=== PATIENT | male | born 1970 | race Caucasian/White ===

== ENCOUNTER 2016-12-01 15:55 | Emergency (ER) | payer BC ==
[~2016-12-01] VITALS: Ht 175.3 cm; Wt 95.3 kg
[2016-12-01] MEDS ORDERED: MORPHINE SULFATE 10 MG/ML VIAL. IV ONE (16:30)
[2016-12-01] MEDS ORDERED: ONDANSETRON PF 4 MG/2 ML VIAL. IV ONE (16:30)
[2016-12-01] MEDS ORDERED: IV NORMAL SALINE 1000ML BAG 1,000 ML IV ONE (16:30)
[2016-12-01 16:45] LABS: BASO % 0 % (0-3); EOS % 0 % (0-3); HEMATOCRIT 43.8 % (39.0-53.0); HEMOGLOBIN 14.9 g/dL (13.0-17.5); LYMPH # 1.4 x10^3/uL (1.0-4.8); LYMPH % 12 % (24-48); MEAN CORPUSCULAR HEMOGLOBIN 29 pg (25-35); MEAN CORPUSCULAR HGB CONC 34 g/dL (31-37); MEAN CORPUSCULAR VOLUME 84 fL (79-100); MONO % 17 % (0-9); NEUT % 70 % (31-73); PLATELET COUNT 222 x10^3/uL (140-400); RED BLOOD COUNT 5.22 x10^6/uL (4.30-5.70); RED CELL DISTRIBUTION WIDTH 13.5 % (11.5-14.5); WHITE BLOOD COUNT 11.9 x10^3/uL (4.0-11.0)
[2016-12-01] MEDS ORDERED: IOHEXOL 300 MG/ML 75 ML VIAL IV ONE (17:00)
[2016-12-01 17:02] LABS: ALBUMIN 3.3 g/dL (3.4-5.0); ALBUMIN/GLOBULIN RATIO 0.8 (1.0-1.7); CALCIUM 9.2 mg/dL (8.5-10.1); CREATININE 0.9 mg/dL (0.7-1.3); GFR 90.4; MAGNESIUM 1.9 mg/dL (1.8-2.4); TOTAL BILIRUBIN 0.7 mg/dL (0.2-1.0); TOTAL PROTEIN 7.6 g/dL (6.4-8.2)
[2016-12-01 17:04] LABS: POTASSIUM 2.8 mmol/L (3.5-5.1)
--- NOTE | 2016-12-01 17:06 | PHYS DOC ---
Past Medical History Past Medical History: High Cholesterol Past Surgical History: No Surgical History Alcohol Use: Occasionally Drug Use: None Adult General Chief Complaint Chief Complaint: ABDOMINAL PAIN HPI HPI Patient is a 46 year old male presenting to the emergency department for evaluation of diffuse lower abdominal pain that has been going on for approximately 2 days. He says that approximately 6 days ago he started having diarrhea symptoms and they lasted for 2-3 days and then he was feeling well Wednesday and Wednesday however yesterday he started having severe lower abdominal cramping and mild diarrhea. He says the pain has become more intense over today and it is worse in the left lower quadrant. He was seen at an urgent care and told to come to the emergency department to be evaluated for diverticulitis. Patient denies any fevers chills nausea vomiting dysuria hematuria or testicular pain. He is in no obvious distress with normal vital signs. Review of Systems Review of Systems Constitutional: Denies fever or chills [] Eyes: Denies change in visual acuity, redness, or eye pain [] HENT: Denies nasal congestion or sore throat [] Respiratory: Denies cough or shortness of breath [] Cardiovascular: No additional information not addressed in HPI [] GI: + abdominal pain. No nausea, vomiting. + diarrhea [] : Denies dysuria or hematuria [] Musculoskeletal: Denies back pain or joint pain [] Integument: Denies rash or skin lesions [] Neurologic: Denies headache, focal weakness or sensory changes [] Current Medications Current Medications Current Medications Medications (Trade) Dose Ordered Sig/[place] Start Time Stop Time Status Last Admin Dose Admin Acetaminophen/ Hydrocodone Bitart (Lortab 5/325) 2 tab 1X ONCE 12/01/16 18:00 12/01/16 18:01 UNV Iohexol (Omnipaque 300 Mg/ml) 75 ml 1X ONCE 12/01/16 17:00 12/01/16 17:01 DC 12/01/16 17:11 75 ML Levofloxacin (Levaquin) 500 mg 1X ONCE 12/01/16 18:00 12/01/16 18:01 UNV Metronidazole (Flagyl) 500 mg 1X ONCE 12/01/16 18:00 12/01/16 18:01 UNV Morphine Sulfate 5 mg 1X ONCE 12/01/16 16:30 12/01/16 16:31 DC 12/01/16 16:49 5 MG Ondansetron HCl (Zofran) 4 mg 1X ONCE 12/01/16 16:30 12/01/16 16:31 DC 12/01/16 16:49 4 MG Potassium Chloride 30 meq/ Sodium Chloride 1,015 ml @ 750 mls/hr 1X ONCE 12/01/16 17:15 12/01/16 18:36 12/01/16 17:25 750 MLS/HR Potassium Chloride (Klor-Con) 40 meq 1X ONCE 12/01/16 17:45 12/01/16 17:46 DC 12/01/16 17:25 40 MEQ Sodium Chloride 1,000 ml @ 1,000 mls/hr 1X ONCE 12/01/16 16:30 12/01/16 17:29 DC 12/01/16 16:50 1,000 MLS/HR Allergies Allergies Allergies Coded Allergies Type Severity Reaction Last Updated Verified Sulfa (Sulfonamide Antibiotics) Allergy Unknown 12/01/16 Yes Physical Exam Physical Exam Constitutional: Well developed, well nourished, no acute distress, non-toxic appearance. [] HENT: Normocephalic, atraumatic, bilateral external ears normal, oropharynx moist, no oral exudates, nose normal. [] Eyes: PERRLA, EOMI, conjunctiva normal, no discharge. [] Neck: Normal range of motion, no tenderness, supple, no stridor. [] Cardiovascular:Heart rate regular rhythm, no murmur [] Lungs & Thorax: Bilateral breath sounds clear to auscultation [] Abdomen: Bowel sounds normal, soft, + diffuse lower abd tenderness, worse in LLQ , no rebound or guarding, no masses, no pulsatile masses. [] Skin: Warm, dry, no erythema, no rash. [] Back: No tenderness, no CVA tenderness. [] Extremities: No tenderness, no cyanosis, no clubbing, ROM intact, no edema. [] Neurologic: Alert and oriented X 3, normal motor function, normal sensory function, no focal deficits noted. [] Current Patient Data Vital Signs Vital Signs Date Time Temp Pulse Resp B/P (MAP) Pulse Ox O2 Delivery O2 Flow Rate FiO2 12/01/16 16:00 99.5 95 16 129/80 (96) 95 Room Air 99.5 Lab Values Laboratory Tests Test 12/01/16 16:35 12/01/16 17:00 White Blood Count 11.9 x10^3/uL (4.0-11.0) H Red Blood Count 5.22 x10^6/uL (4.30-5.70) Hemoglobin 14.9 g/dL (13.0-17.5) Hematocrit 43.8 % (39.0-53.0) Mean Corpuscular Volume 84 fL (79-100) Mean Corpuscular Hemoglobin 29 pg (25-35) Mean Corpuscular Hemoglobin Concent 34 g/dL (31-37) Red Cell Distribution Width 13.5 % (11.5-14.5) Platelet Count 222 x10^3/uL (140-400) Neutrophils (%) (Auto) 70 % (31-73) Lymphocytes (%) (Auto) 12 % (24-48) L Monocytes (%) (Auto) 17 % (0-9) H Eosinophils (%) (Auto) 0 % (0-3) Basophils (%) (Auto) 0 % (0-3) Neutrophils # (Auto) 8.4 x10^3uL (1.8-7.7) H Lymphocytes # (Auto) 1.4 x10^3/uL (1.0-4.8) Monocytes # (Auto) 2.0 x10^3/uL (0.0-1.1) H Eosinophils # (Auto) 0.0 x10^3/uL (0.0-0.7) Basophils # (Auto) 0.0 x10^3/uL (0.0-0.2) Segmented Neutrophils % 69 % (35-66) H Band Neutrophils % 3 % (0-9) Lymphocytes % 15 % (24-48) L Monocytes % 13 % (0-10) H Platelet Estimate Adequate (ADEQUATE) Sodium Level 136 mmol/L (136-145) Potassium Level 2.8 mmol/L (3.5-5.1) *L Chloride Level 97 mmol/L (98-107) L Carbon Dioxide Level 28 mmol/L (21-32) Anion Gap 11 (6-14) Blood Urea Nitrogen 9 mg/dL (8-26) Creatinine 0.9 mg/dL (0.7-1.3) Estimated GFR (Cockcroft-Gault) 90.4 BUN/Creatinine Ratio 10 (6-20) Glucose Level 106 mg/dL (70-99) H Calcium Level 9.2 mg/dL (8.5-10.1) Magnesium Level 1.9 mg/dL (1.8-2.4) Total Bilirubin 0.7 mg/dL (0.2-1.0) Aspartate Amino Transferase (AST) 25 U/L (15-37) Alanine Aminotransferase (ALT) 40 U/L (16-63) Alkaline Phosphatase 105 U/L (46-116) Total Protein 7.6 g/dL (6.4-8.2) Albumin 3.3 g/dL (3.4-5.0) L Albumin/Globulin Ratio 0.8 (1.0-1.7) L Lipase 261 U/L (73-393) Urine Collection Type Unknown Urine Color Yellow Urine Clarity Clear Urine pH 6.5 Urine Specific [place] 1.015 Urine Protein 30 mg/dL (NEG-TRACE) Urine Glucose (UA) Negative mg/dL (NEG) Urine Ketones (Stick) Negative mg/dL (NEG) Urine Blood Negative (NEG) Urine Nitrite Negative (NEG) Urine Bilirubin Negative (NEG) Urine Urobilinogen Dipstick 0.2 mg/dL (0.2 mg/dL) Urine Leukocyte Esterase Negative (NEG) Urine RBC 0 /HPF (0-2) Urine WBC Occ /HPF (0-4) Urine Squamous Epithelial Cells Occ /LPF Urine Bacteria Few /HPF (0-FEW) Laboratory Tests 12/01/16 16:35 Laboratory Tests 12/01/16 16:35 EKG EKG [] Radiology/Procedures Radiology/Procedures CT SCAN OF THE ABDOMEN AND PELVIS WITH IV CONTRAST. History: Lower abdominal pain and diarrhea for 5 days Comparison:None. Procedure: Contiguous axial images of the abdomen and pelvis were performed after the administration of 75 cc of Omni 300 IV contrast and without oral contrast. CT Abdomen with contrast: Findings: Liver: Unremarkable Spleen: Unremarkable Pancreas: Unremarkable Adrenal Glands: Unremarkable Kidneys: Unremarkable There is no mass or lymphadenopathy. There is no free air. There is no free fluid. There is mild wall thickening of the left colon with minimal surrounding inflammation. The colon proximal to the left colon is fairly distended. CT Pelvis with Contrast: Findings: The urinary bladder appears normal. There is no free fluid. There is no lymphadenopathy. The appendix is normal. Impression: Mild wall thickening with minimal surrounding inflammation of the left colon is likely colitis and could be infectious such as pseudomonas colitis or could be inflammatory such as ulcerative colitis. There is no diverticulitis. There is very mild obstructive changes. PQRS Compliance Statement: One or more of the following individualized dose reduction techniques were utilized for this examination: 1. Automated exposure control 2. Adjustment of the mA and/or kV according to patient size 3. Use of iterative reconstruction technique Electronically signed by: Makayla Cherry III, MD (12/01/2016 5:38 PM) [email or web address] DICTATED and SIGNED BY: MAKAYLA CHERRY III, MD DATE: 12/01/16 1740 Course & Med Decision Making Course & Med Decision Making Patient with colitis on CT T which goes along with his history and physical exam. Anus resolved in the emergency department and his repeat abdominal exam is benign. Patient can safely be treated as an outpatient with short-term PCP follow-up in my opinion. Patient agrees that he feels well and the like to go home so he'll be discharged with Levaquin and Flagyl [place] Zofran and told to follow with his PCP in the next 2-3 days and come back to the ED sooner with any new worsening pain fevers vomiting or other general concerns. Patient aware and agreeable with the above plan and verbalized understanding of the above instructions. Dragon Disclaimer Dragon Disclaimer This electronic medical record was generated, in whole or in part, using a voice recognition dictation system. Departure Departure Impression: Primary Impression: Colitis Additional Impressions: Hypokalemia Leukocytosis Disposition: 01 HOME, SELF-CARE Condition: STABLE Referrals: UNKNOWN PCP NAME (PCP) EMMA MOYA MD Patient Instructions: Colitis Additional Instructions: MAKE SURE THAT YOU ARE DRINKING PLENTY OF FLUIDS INCLUDING GATORADE. EAT SOFT NON-IRRITATING FOODS SUCH SOUPS AND BANANAS. FOLLOW WITH YOUR PCP LATER THIS WEEK AND COME BACK TO THE ED WITH ANY NEW OR WORSENING SYMPTOMS. THANK YOU! Scripts Metronidazole (FLAGYL) 500 Mg Tablet 1 TAB PO BID, #13 TAB Prov: HEENA PEREIRA DO 12/01/16 Levofloxacin (LEVAQUIN) 500 Mg Tablet 1 TAB PO DAILY, #6 TAB Prov: HEENA PEREIRA DO 12/01/16 Ondansetron (ZOFRAN ODT) 4 Mg Tab.rapdis 4 MG PO BID Y for NAUSEA/VOMITING, #10 TAB Prov: HEENA PEREIRA DO 12/01/16 Hydrocodone/Apap 5-325 (NORCO 5-325 TABLET) 1 Each Tablet 1 TAB PO PRN Q6HRS Y for PAIN, #20 TAB 0 Refills Prov: HEENA PEREIRA DO 12/01/16 Problem Qualifiers HEENA PEREIRA DO Dec 01, 2016 17:06
[2016-12-01 17:07] LABS: BILIRUBIN,URINE NEGATIVE (NEG); GLUCOSE,URINE NEGATIVE (NEG); NITRITE,URINE NEGATIVE (NEG); PH,URINE 6.5; PROTEIN,URINE 30 mg/dL (NEG-TRACE); UROBILINOGEN,URINE 0.2 mg/dL (0.2 mg/dL)
[2016-12-01] MEDS ORDERED: POTASSIUM CHLORIDE 30 MEQ in IV NORMAL SALINE 1000ML BAG 1,000 ML IV ONE (17:15)
[2016-12-01 17:21] LABS: BACTERIA,URINE FEW /HPF (0-FEW); RBC,URINE 0 /HPF (0-2); SQUAMOUS EPITHELIAL CELL,UR OCC /LPF; WBC,URINE OCC /HPF (0-4)
[2016-12-01 17:41] LABS: PLT ESTIMATE ADEQUATE (ADEQUATE)
--- NOTE | 2016-12-01 17:41 | RAD ---
CT SCAN OF THE ABDOMEN AND PELVIS WITH IV CONTRAST. History: Lower abdominal pain and diarrhea for 5 days Comparison:None. Procedure: Contiguous axial images of the abdomen and pelvis were performed after the administration of 75 cc of Omni 300 IV contrast and without oral contrast. CT Abdomen with contrast: Findings: Liver: Unremarkable Spleen: Unremarkable Pancreas: Unremarkable Adrenal Glands: Unremarkable Kidneys: Unremarkable There is no mass or lymphadenopathy. There is no free air. There is no free fluid. There is mild wall thickening of the left colon with minimal surrounding inflammation. The colon proximal to the left colon is fairly distended. CT Pelvis with Contrast: Findings: The urinary bladder appears normal. There is no free fluid. There is no lymphadenopathy. The appendix is normal. Impression: Mild wall thickening with minimal surrounding inflammation of the left colon is likely colitis and could be infectious such as pseudomonas colitis or could be inflammatory such as ulcerative colitis. There is no diverticulitis. There is very mild obstructive changes. PQRS Compliance Statement: One or more of the following individualized dose reduction techniques were utilized for this examination: 1. Automated exposure control 2. Adjustment of the mA and/or kV according to patient size 3. Use of iterative reconstruction technique Electronically signed by: Christopher Cherry III, MD (12/01/2016 5:38 PM) [id number]
[2016-12-01] MEDS ORDERED: POTASSIUM CHLORIDE 20 MEQ TABLET.ER. PO ONE (17:45)
[2016-12-01] MEDS ORDERED: HYDR-971 PO (17:58)
[2016-12-01] MEDS ORDERED: METR500T PO (17:58)
[2016-12-01] MEDS ORDERED: ONDA4TAB10 PO (17:58)
[2016-12-01] MEDS ORDERED: LEVO500T59 PO (17:58)
[2016-12-01 18:29] VITALS: BP 106/64
[2016-12-01] MEDS ORDERED: metroNIDAZOLE 500 MG TABLET PO ONE (18:30)
[2016-12-01] MEDS ORDERED: HYDROcodone/APAP 5/325MG 1 TAB TABLET PO ONE (18:30)
== END 2016-12-01 18:56 | disposition home or self-care (01) ==
LOC: ER 15:55
DX: K52.9 Noninfective gastroenteritis and colitis, unspecified (principal); E87.6 Hypokalemia; D72.829 Elevated white blood cell count, unspecified; E78.00 Pure hypercholesterolemia, unspecified; Z88.2 Allergy status to sulfonamides
CPT/HCPCS: 36415; 74177; 80053; 81001; 83690; 83735; 85007; 85025; 96361; 96365; 96375; 99285; J2270; J2405; J7030; Q9967